=== PATIENT | female | born 1990 | race African-American/Black ===

== ENCOUNTER 2025-06-12 14:06 | Emergency (ER) | payer MEDICAID ==
[~2025-06-12] VITALS: Ht 172.7 cm; Wt 105.0 kg
[~2025-06-12 14:06] MED LIST: NO HOME MEDS
[2025-06-12 14:16] VITALS: BP_DIAS 106; O2SAT 100
[2025-06-12 15:37] LABS: BASOPHILS % 0.9 % (0.0-2.0); EOSINOPHILS % 0.8 % (0.0-5.0); HEMATOCRIT. 36.9 % (36.0-48.0); HEMOGLOBIN. 12.1 g/dL (12.0-16.0); LYMPHOCYTES % 19.8 % (20.0-50.0); MEAN PLATELET VOLUME 6.9 fl (7.4-10.4); MONOCYTES % 13.5 % (2.0-8.0); NEUTROPHILS % 65.0 % (40.0-76.0); PLATELET 270 x1000/uL (130-400); RED BLOOD CELL COUNT 4.59 mill/uL (4.2-5.4); RED CELL DISTRIBUTION WIDTH 14.6 % (11.6-14.6)
[2025-06-12] MEDS: FAMOTIDINE 20MG TABLET PO ONE (15:48)
[2025-06-12] MEDS: ONDANSETRON 4MG ODT PO ONE (15:48)
[2025-06-12 15:50] LABS: CREATININE 0.8 mg/dL (0.6-1.0); UREA NITROGEN BLOOD 6 mg/dL (9-23)
[2025-06-12 15:51] LABS: ETHANOL BLOOD < 10 mg/dL (<10); PROTEIN TOTAL 7.5 g/dL (6.0-8.3)
[2025-06-12 15:52] LABS: ASPARTATE AMINOTRANSFERASE 25 IU/L (<34); BILIRUBIN DIRECT < 0.1 mg/dL (<=3.0); BILIRUBIN TOTAL 0.3 mg/dL (0.1-1.0)
[2025-06-12 15:53] LABS: CLARITY URINE CLEAR (CLEAR); COLOR URINE YELLOW (YELLOW); GLUCOSE URINE NEGATIVE (NEGATIVE); KETONES URINE NEGATIVE (NEGATIVE); LEUKOCYTE ESTERASE URINE NEGATIVE (NEGATIVE); NITRITE URINE NEGATIVE (NEGATIVE); OCCULT BLOOD URINE NEGATIVE (NEGATIVE); PH URINE 7.5 (4.5-8.0); PROTEIN URINE NEGATIVE (NEGATIVE); SPECIFIC GRAVITY URINE 1.014 (1.005-1.030); UROBILINOGEN URINE 0.2 E.U./dL (0.2-1.0)
[2025-06-12 15:59] LABS: HCG SCREEN NEGATIVE
[2025-06-12 17:00] LABS: INFLUENZA TYPE A Presumptive Negative (Pres. Neg.); INFLUENZA TYPE B Presumptive Negative (Pres. Neg.)
[2025-06-12 17:01] LABS: RESPIRATORY SYNCYTIAL VIRUS Not Detected (Not Detectd)
[2025-06-12] MEDS ORDERED: ONDA4TAB50 MT (17:18)
[2025-06-12] MEDS ORDERED: FAMO-135 MT (17:18)
[2025-06-12 17:25] VITALS: BP_SYST 134; PULSE 79; RESP 18; TEMP 36.9; O2SAT 100
== END 2025-06-12 17:45 | disposition home or self-care (01) ==
LOC: ER 14:06
DX: R11.2 Nausea with vomiting, unspecified (principal); F12.90 Cannabis use, unspecified, uncomplicated; Z79.899 Other long term (current) drug therapy; Z20.822 Contact with and (suspected) exposure to COVID-19
CPT/HCPCS: 80076; 80048; 81003; 81025; 80320; 84703; 83690; 85025; 87420; 87804 ×2; 36415; 99283; 87426; Q0162; G0480